=== PATIENT | female | born 1985 | race Caucasian/White ===

== ENCOUNTER 2017-06-28 16:42 | Emergency (ER) | payer BC, OTHER ==
[2017-06-28] MEDS ORDERED: ZOLOFT (16:52)
[2017-06-30 22:04] LABS: CHLAMYDIA TRACH Not Detected (Not Detected); N GONOR Not Detected (Not Detected)
== END 2017-06-28 17:57 | disposition home or self-care (01) ==
LOC: SED 16:42
PROVIDERS: Nurse Practitioner
DX: N76.0 Acute vaginitis (principal); F32.9 Major depressive disorder, single episode, unspecified; Z90.49 Acquired absence of other specified parts of digestive tract; Z95.1 Presence of aortocoronary bypass graft
CPT/HCPCS: 87210; 87491; 87591; 87808; 87905; 99283